=== PATIENT | male | born 1980 | race American Indian/Alaskan Native ===

== ENCOUNTER 2022-02-27 00:10 | Emergency (ER) | payer MEDICAID, OTHER ==
[2022-02-27] MEDS ORDERED: cefTRIAXone 500 MG, Lidocaine 1% 1 ML IM ONE ×2 (00:37)
[2022-02-27] MEDS ORDERED: Azithromycin 250 MG Tab PO ONE (00:37)
[2022-03-01 11:47] LABS: C.TRACHOMATIS BY TMA Negative (Negative); N.GONORRHOEAE BY TMA Positive (Negative)
== END 2022-02-27 00:59 | disposition home or self-care (01) ==
LOC: DL.ED 00:10
DX: R30.0 Dysuria (principal); Z72.51 High risk heterosexual behavior; F17.210 Nicotine dependence, cigarettes, uncomplicated
CPT/HCPCS: 81001; 87086; 87491; 87591; 96372; 99283; A9270-GY; J0696

== ENCOUNTER 2022-03-27 03:25 | Emergency (ER) | payer MEDICAID, OTHER ==
[2022-03-27] MEDS ORDERED: Acetaminophen/HYDROcodone 325-5 MG Tab PO ONE (05:32)
== END 2022-03-27 05:29 | disposition home or self-care (01) ==
LOC: DL.ED 03:25
DX: S92.322A Displaced fracture of second metatarsal bone, left foot, initial encounter for closed fracture (principal); S92.332A Displaced fracture of third metatarsal bone, left foot, initial encounter for closed fracture; S92.342A Displaced fracture of fourth metatarsal bone, left foot, initial encounter for closed fracture; F17.210 Nicotine dependence, cigarettes, uncomplicated; X50.1XXA Overexertion from prolonged static or awkward postures, initial encounter
CPT/HCPCS: 29515; 73630; 99283; A9270; 99282

== ENCOUNTER 2022-04-01 23:13 | Emergency (ER) | payer MEDICAID | END 2022-04-02 02:18 | disposition left against medical advice (07) | LOC: DL.ED 23:13 | DX: Z53.21 Procedure and treatment not carried out due to patient leaving prior to being seen by health care provider (principal) | CPT/HCPCS: 73630-LT ==

== ENCOUNTER 2023-05-22 10:38 | Emergency (ER) | payer MEDICAID | END 2023-05-22 11:32 | disposition home or self-care (01) | LOC: DL.ED 10:38 | DX: J02.9 Acute pharyngitis, unspecified (principal); B34.9 Viral infection, unspecified | CPT/HCPCS: 87081; 87430; 87804; 99283; 99284; U0002 ==

== ENCOUNTER 2025-01-02 01:43 | Emergency (ER) | payer SELFPAY | END 2025-01-02 02:38 | disposition home or self-care (01) | LOC: DL.ED 01:43 | DX: S92.501A Displaced unspecified fracture of right lesser toe(s), initial encounter for closed fracture (principal); X58.XXXA Exposure to other specified factors, initial encounter | CPT/HCPCS: 73660-RT; 99283 ==

== ENCOUNTER 2025-06-23 06:40 | Emergency (ER) | payer SELFPAY | END 2025-06-23 08:49 | disposition home or self-care (01) | LOC: DL.ED 06:40 | DX: S46.211A Strain of muscle, fascia and tendon of other parts of biceps, right arm, initial encounter (principal); F17.200 Nicotine dependence, unspecified, uncomplicated; X58.XXXA Exposure to other specified factors, initial encounter | CPT/HCPCS: 99283 ==